=== PATIENT | male | born 1990 | race Caucasian/White ===

== ENCOUNTER 2018-03-05 12:38 | Outpatient (CLI) | payer BC ==
--- NOTE | 2018-03-05 14:15 | MRI ---
MRI LEFT KNEE WITHOUT CONTRAST: Date: 03/05/18 INDICATION: Left knee injury while skiing. TECHNIQUE: Axial, coronal and sagittal T2 fat sat, sagittal TD, and coronal T1 images are obtained of the left k nee. FINDINGS: No joint effusion is evident. No Pedraza's cyst is present. The ACL, PCL, MCL, and LCLC are intact. No osteochondral lesion is evident. The menisci are intact. Bone marrow signal is within normal limits. There is some mild increased T2 signal involving the proximal patellar tendon with surrounding edema suspicious for mild patellar tendinitis. The quadriceps mechanism is intact. IMPRESSION: Mild patellar tendinitis. POS: [facility]
== END 2018-03-05 12:39 | disposition home or self-care (01) ==
LOC: TBSIIMAG 12:38
PROVIDERS: ATTEND Family Medicine
DX: M25.562 Pain in left knee (principal); M76.52 Patellar tendinitis, left knee